=== PATIENT | male | born 1970 | race African-American/Black ===

== ENCOUNTER 2021-05-03 16:37 | Outpatient (RCR) | payer OTHER | END 2021-06-17 15:08 | disposition home or self-care (01) | LOC: COL.CR 16:37 | DX: I25.110 Atherosclerotic heart disease of native coronary artery with unstable angina pectoris (principal) ==

== ENCOUNTER 2022-02-12 05:47 | Emergency (ER) | payer OTHER ==
[~2022-02-12] VITALS: Ht 172.7 cm; Wt 93.2 kg
[2022-02-12 05:53] VITALS: TEMP 97.5
[2022-02-12 06:09] LABS: BASO % 0.3 % (0.0-2.0); EOS # 0.1 K/mm3 (0.0-0.7); EOS % 2.3 % (0.0-4.0); GRAN # 3.4 K/mm3 (1.4-6.5); GRAN % 54.7 % (42.2-75.2); HEMOGLOBIN 15.9 g/dl (13.5-18.0); LYMPH # 2.3 K/mm3 (1.2-3.4); LYMPH % 36.9 % (20.0-51.0); MEAN CELL VOLUME 86 fl (80.0-100.0); MEAN CORPUSCULAR HEMOGLOBIN 30 pg (27-31); MEAN CORPUSCULAR HGB CONC 35 g/dl (33.0-37.0); MEAN PLATELET VOLUME 10.4 fl (7.4-10.4); MONO # 0.3 K/mm3 (0.1-0.6); MONO % 5.6 % (1.7-9.3); PLATELET COUNT 150 K/mm3 (130-400); RED BLOOD COUNT 5.36 M/mm3 (4.20-5.60); REDCELL DISTRIBUTION WIDTH-CV 11.8 % (11.5-14.5)
[2022-02-12 06:25] LABS: ALBUMIN 3.8 gm/dL (3.5-5.0); BILIRUBIN,TOTAL 0.9 mg/dL (0.2-1.2); CREATININE, serum 1.1 mg/dL (0.72-1.25); POTASSIUM 3.6 mmol/L (3.5-4.5); TOTAL PROTEIN 6.6 gm/dL (6.2-8.1)
[2022-02-12 06:31] LABS: TROPONIN-I 0.018 ng/mL (0.00-0.033)
[2022-02-12] MEDS ORDERED: MAALOX ADVANCE148 ML PO (06:54)
[2022-02-12 07:00] VITALS: BP 11/76; PULSE 61
== END 2022-02-12 07:03 | disposition home or self-care (01) ==
LOC: COL.ER 05:47
PROVIDERS: Emergency Medicine
DX: K29.70 Gastritis, unspecified, without bleeding (principal); Z95.5 Presence of coronary angioplasty implant and graft

== ENCOUNTER 2022-07-21 12:09 | Outpatient (RCR) | payer OTHER ==
[~2022-07-21 12:09] MED LIST: MAALOX ADVANCE148 ML PO
== END 2022-07-22 | disposition home or self-care (01) ==
LOC: COL.CR
DX: Z48.812 Encounter for surgical aftercare following surgery on the circulatory system (principal); I25.10 Atherosclerotic heart disease of native coronary artery without angina pectoris; Z95.5 Presence of coronary angioplasty implant and graft

== ENCOUNTER 2022-07-29 22:44 | Emergency (ER) | payer OTHER ==
[~2022-07-29] VITALS: Ht 172.7 cm; Wt 90.5 kg
[2022-07-29 22:56] VITALS: TEMP 98.6
[2022-07-29 23:12] LABS: BASO % 0.5 % (0.0-2.0); EOS # 0.2 K/mm3 (0.0-0.7); EOS % 3.1 % (0.0-4.0); GRAN # 3.6 K/mm3 (1.4-6.5); GRAN % 49.5 % (42.2-75.2); HEMATOCRIT 46.7 % (42.0-52.0); HEMOGLOBIN 15.9 g/dl (13.5-18.0); LYMPH % 40.5 % (20.0-51.0); MEAN CELL VOLUME 88 fl (80.0-100.0); MEAN CORPUSCULAR HEMOGLOBIN 30 pg (27-31); MEAN CORPUSCULAR HGB CONC 34 g/dl (33.0-37.0); MEAN PLATELET VOLUME 10.9 fl (7.4-10.4); MONO # 0.5 K/mm3 (0.1-0.6); MONO % 6.3 % (1.7-9.3); PLATELET COUNT 183 K/mm3 (130-400); RED BLOOD COUNT 5.32 M/mm3 (4.20-5.60); REDCELL DISTRIBUTION WIDTH-CV 12.1 % (11.5-14.5)
[2022-07-29 23:26] LABS: BILIRUBIN,TOTAL 0.5 mg/dL (0.2-1.2); CALCIUM 9.5 mg/dL (8.4-10.2); CREATININE, serum 1.3 mg/dL (0.72-1.25); TOTAL PROTEIN 7.2 gm/dL (6.2-8.1)
[2022-07-29 23:32] LABS: TROPONIN-I 0.031 ng/mL (0.00-0.033)
[2022-07-30 02:35] VITALS: BP 145/78; PULSE 76
== END 2022-07-30 02:36 | disposition home or self-care (01) ==
LOC: COL.ER 22:44
PROVIDERS: Emergency Medicine Emergency Medical Services
DX: R07.89 Other chest pain (principal); R00.2 Palpitations; Z28.310 Unvaccinated for COVID-19; Z20.822 Contact with and (suspected) exposure to COVID-19

== ENCOUNTER 2022-08-15 12:37 | Outpatient (RCR) | payer OTHER | END 2022-08-19 | disposition home or self-care (01) | LOC: COL.CR | DX: I25.119 Atherosclerotic heart disease of native coronary artery with unspecified angina pectoris (principal); Z95.5 Presence of coronary angioplasty implant and graft ==

== ENCOUNTER 2022-08-22 06:21 | Day surgery (SDC) | payer OTHER ==
[~2022-08-22] VITALS: Ht 172.7 cm; Wt 89.6 kg
[~2022-08-22 06:21] MED LIST changes: +RANEXA 500MG T500 MG PO
[2022-08-22 06:31] VITALS: BP 121/78; PULSE 66; TEMP 97
[2022-08-22] MEDS ORDERED: PROAIR HFA0.09 MG/AC IH (06:53)
[2022-08-22] MEDS ORDERED: TYLENOL 500MG500 MG PO (06:53)
[2022-08-22] MEDS ORDERED: ASPIRIN 81M81 MG/TA2 PO (06:54)
[2022-08-22] MEDS ORDERED: ELIQUIS 5MG PO (06:54)
[2022-08-22] MEDS ORDERED: ZYRTEC 10MG10 MG PO (06:55)
[2022-08-22] MEDS ORDERED: FLEXERIL 1010 MG/TAB PO (06:55)
[2022-08-22] MEDS ORDERED: JARDIANCE25 PO (06:56)
[2022-08-22] MEDS ORDERED: ZETIA 10MG TAB10 MG PO (06:56)
[2022-08-22] MEDS ORDERED: IMDUR 30MG30 MG/TAB PO (06:56)
[2022-08-22] MEDS ORDERED: MAG-OX 400400 MG/TAB PO (06:57)
[2022-08-22] MEDS ORDERED: MEDROL4 MG PO (06:58)
[2022-08-22] MEDS ORDERED: TOPROL XL100 MG PO (06:59)
[2022-08-22] MEDS ORDERED: PROTONIX 40MG T40 MG PO (06:59)
[2022-08-22] MEDS ORDERED: ENTRESTO 24 MG1 EACH PO (07:00)
[2022-08-22] MEDS ORDERED: CRESTOR 10MG10 MG PO (07:00)
[2022-08-22 08:00] VITALS: BP 102/68; PULSE 71; TEMP 97.1
[2022-08-22 08:15] VITALS: BP 116/78; PULSE 47
[2022-08-22 08:30] VITALS: BP 110/75; PULSE 53
[2022-08-22 08:40] VITALS: BP 118/82; PULSE 56
--- NOTE | 2022-08-22 11:38 | NUR ---
0800 PT TO REC[facility]ERY [facility] FROM [facility], L&OX4, NAD, DENIES COMPLAINT, AMBULATED WITH STEADY GAIT WITH 2 PERSON ASSIST TO CHAIR, PLACED ON MONITOR. REPORT FROM CARRIE RN, ASSUMED CARE. /RIDE HOME IN ROOM. 0820 NOTED TO BE PILI (47) - CONFIRMS RECENT HISTORY, F/U WITH CARDIO, DENIES CARDIO COMPLAINTS. REPORTS LOCALIZED SUBSTERNAL PAIN FOLLOWING EGD WITH BIOPSY. DR REECE IN ROOM TO DISCUSS PROCEEDURE FINDINGS, AND ASSESS - OK FOR PT TO D/C HOME PER MD. D/C INSTRUCTIONS REVIEWED AND HANDED TO PT, ALL QUESTIONS/CONCERNS ADDRESSED TO PT SATISFACTION. 0835 HAS TOLERATED PO, DENIES FURTHER/WORSENING COMPLAINT, HR MID 50'S, OTHER VSS ON RA. UP WITH STEADY GAIT TO GET DRESSED, DENIES ANY CHANGE WITH ACTIVITY. HR AT PT BASELINE. 0840 TAKEN TO EXIT VIA WC WITH ALL BELONGINGS AND PAPERWORK AFTER IV DC'D. DRIVING HOME.
== END 2022-08-22 08:40 | disposition home or self-care (01) ==
LOC: SDCO 06:21
DX: Z12.11 Encounter for screening for malignant neoplasm of colon (principal); K21.00 Gastro-esophageal reflux disease with esophagitis, without bleeding
CPT/HCPCS: J2704; J7120

== ENCOUNTER 2022-09-17 15:07 | Outpatient (RCR) | payer OTHER ==
[~2022-09-17 15:07] MED LIST changes: +ASPIRIN 81M81 MG/TA2 PO; +CRESTOR 10MG10 MG PO; +ELIQUIS 5MG PO; +ENTRESTO 24 MG1 EACH PO; +FLEXERIL 1010 MG/TAB PO; +IMDUR 30MG30 MG/TAB PO; +JARDIANCE25 PO; +MAG-OX 400400 MG/TAB PO; +MEDROL4 MG PO; +PROAIR HFA0.09 MG/AC IH; +PROTONIX 40MG T40 MG PO; +TOPROL XL100 MG PO; +TYLENOL 500MG500 MG PO; +ZETIA 10MG TAB10 MG PO; +ZYRTEC 10MG10 MG PO
== END 2022-09-19 | disposition home or self-care (01) ==
LOC: COL.CR
DX: Z48.812 Encounter for surgical aftercare following surgery on the circulatory system (principal); Z95.5 Presence of coronary angioplasty implant and graft; I25.10 Atherosclerotic heart disease of native coronary artery without angina pectoris

== ENCOUNTER 2022-10-10 12:22 | Outpatient (RCR) | payer OTHER | END 2022-10-19 | disposition home or self-care (01) | LOC: COL.CR | DX: Z48.812 Encounter for surgical aftercare following surgery on the circulatory system (principal); Z95.5 Presence of coronary angioplasty implant and graft; I25.5 Ischemic cardiomyopathy; I25.10 Atherosclerotic heart disease of native coronary artery without angina pectoris ==

== ENCOUNTER → 2022-11-19 | Outpatient (RCR) | payer OTHER | END | disposition home or self-care (01) | LOC: COL.CR | DX: I25.119 Atherosclerotic heart disease of native coronary artery with unspecified angina pectoris (principal) ==